=== PATIENT | male | born 1960 | race Caucasian/White ===

== ENCOUNTER 2018-11-13 11:07 | Emergency (ER) | payer MEDICARE, OTHER | END 2018-11-13 12:14 | disposition home or self-care (01) | LOC: FTE 11:07 | DX: Z48.01 Encounter for change or removal of surgical wound dressing (principal); F17.210 Nicotine dependence, cigarettes, uncomplicated; I10 Essential (primary) hypertension | CPT/HCPCS: 99281 ==